=== PATIENT | male | born 1950 | race Caucasian/White ===

== ENCOUNTER 2018-02-21 06:48 | Day surgery (SDC) | payer MEDICARE ==
[2018-02-17 10:24] VITALS: BMI 34.0
[~2018-02-21 06:48] MED LIST: LACTATED RINGERS 1,000 ML IV SCH; LIDOCAINE 1% 20 ML VIAL (10MG/ML) FOR IV START INTRADERMA PRN
[2018-02-21] MEDS ORDERED: LACTATED RINGERS 1,000 ML IV ONE (07:07)
[2018-02-21 07:14] VITALS: TEMP 98.5
[2018-02-21 07:25] LABS: Glucose,Whole Blood 108 mg/dL (75-99)
[2018-02-21] MEDS ORDERED: PROPOFOL 10 MG/ML 20 ML VIAL IV ONE (07:50)
[2018-02-21 08:24] VITALS: RESP 18
--- NOTE | 2018-02-21 09:04 | P.PCN ---
Date of Procedure: 02/21/18 Procedure(s) Performed: Procedure: Total colonoscopy. Preoperative diagnosis: Screening for neoplasia. Postoperative diagnosis: Diverticulosis with no evidence of acute diverticulitis , strictures, polyps or cancer. Preparation: HalfLytely prep. Sedation: Was provided by anesthesia. Brief clinical history: The patient is a 67-year-old male who is scheduled for this evaluation for screening for neoplasia age being his risk factor. His prior exam was more than 10 years ago. The patient has no abdominal complaints , bleeding or anemia. Procedure: With the patient on his left lateral decubitus position and after informed consent and adequate sedation, the perianal area was inspected and it did not show any fissures or fistulas. There were no masses felt on digital rectal examination. The Olympus CFQ H190L video colonoscope was then inserted in the rectum in the usual fashion and advanced to the cecum. The mucosa appeared healthy. Multiple diverticular orifices were seen scattered along the length of the bowel with no evidence of acute diverticulitis or strictures. No polyps or tumors were seen. I retroflexed the endoscope in the rectum before the endoscope was withdrawn The patient tolerated the procedure well. Plan: The patient was reassured. Discussed dietary measures. Consideration can be given for repeat exam in 10 years depending on his overall health.
[2018-02-21 09:09] LABS: Glucose,Whole Blood 106 mg/dL (75-99)
[2018-02-21 09:10] VITALS: BP 148/83; PULSE 60
== END 2018-02-21 09:19 | disposition home or self-care (01) ==
LOC: ORWHC2ENDO 06:48
DX: Z12.11 Encounter for screening for malignant neoplasm of colon (principal); K57.30 Diverticulosis of large intestine without perforation or abscess without bleeding; I25.10 Atherosclerotic heart disease of native coronary artery without angina pectoris; E11.9 Type 2 diabetes mellitus without complications; I10 Essential (primary) hypertension; E78.5 Hyperlipidemia, unspecified; Z79.84 Long term (current) use of oral hypoglycemic drugs; Z79.82 Long term (current) use of aspirin; Z79.899 Other long term (current) drug therapy; Z95.1 Presence of aortocoronary bypass graft
CPT/HCPCS: J2704; G0121

== ENCOUNTER → 2019-11-16 | Outpatient (CLI) | payer MEDICARE ==
--- NOTE | 2019-11-16 22:28 | CONS ---
CONSULTATION DATE OF SERVICE: 11/16/2019 This patient is a 69-year-old gentleman who has been evaluated in Sleep Center for possible obstructive sleep apnea-hypopnea syndrome. HISTORY OF PRESENT ILLNESS/SLEEP-WAKE EVALUATION: Patient's usual sleep schedule is from 11 p.m. to 6 or 6:30 a.m. on weekdays and from midnight until 7 or 7:30 a.m. on weekends. Sometimes he has problems with falling asleep, although no TV in bedroom. He sleeps on his side, with severe snoring and witnessed episodes by his of stopped breathing during sleep. He wakes up from sleep 3 times with nocturia. In the morning the patient wakes up tired, has problems with memory and concentration. [place] Sleepiness Scale is 9. PAST MEDICAL HISTORY: Positive for coronary artery disease, hypertension, diabetes mellitus. PAST SURGICAL HISTORY: CABG. MEDICATIONS: Metformin, lisinopril, metoprolol, simvastatin, paroxetine, Januvia, glimepiride. SOCIAL HISTORY: Negative for smoking. Alcohol consumption occasional. FAMILY HISTORY: Heart problems, hyperlipidemia, hypertension. REVIEW OF SYSTEMS: Awakenings from sleep, episodes of sleepiness during the day. Patient takes one nap at 6 p.m. PHYSICAL EXAMINATION: GENERAL: A pleasant gentleman without distress. VITAL SIGNS: BP 140/77, HR 62, RR 16, height 5 feet 8 inches, weight 242 pounds, BMI 36.7, temperature 97.7, oxygen saturation at room air 96%. HEENT: PERRLA, EOMI. Evaluation of oropharynx showed tongue protrudes midline. Extremely low position of soft palate. Mallampati IV. NECK: Supple. No JVD. Thyroid is not palpable. Wide neck; 19 inches in circumference. LUNGS: Clear to percussion and to auscultation. Good air exchange. No wheezing or rhonchi. HEART: S1, S2 regular. No murmurs, gallops or rubs. ABDOMEN: Obese. EXTREMITIES: No clubbing or cyanosis. POLICE AND FIRE DISPATCHER: Awake, alert, and oriented X3. Cranial nerves 2 to 7 intact. There is no fasciculation or atrophy. noted. No focal deficits observed. IMPRESSION: 1. Loud snoring, witnessed episodes of stopped breathing during sleep, low position of soft palate, wide neck, sleepiness; obstructive sleep apnea-hypopnea syndrome. 2. Obesity with body mass index of 36.7. 3. Hypertension. 4. Coronary artery disease, status post myocardial infarction, coronary artery bypass grafting and stent insertions. 5. Diabetes mellitus. PLAN: 1. Patient will continue to use PAP equipment every night for the whole night. 2. Sleep hygiene with regular time in bed for at least 7-1/2 to 8 hours. 3. Precautions related to driving. No driving if feeling sleepiness. 4. I will maintain all necessary prescription for PAP supplies including mask, tube, filters. 5. Watching weight. 6. No driving if feeling sleepiness. 7. Follow-up visit in 6 months or earlier if patient has any problems. Thank you very much for referring this patient for consultation. Sincerely, Yvon Kim MD, PhD, FAASM Diplomat of [place] [employer] [employer] Furniture Removalist of [facility] [place] MMODL / KASHN: [id number] /
== END | disposition home or self-care (01) ==
LOC: SLEEP 16:56
PROVIDERS: ATTEND Internal Medicine
DX: G47.33 Obstructive sleep apnea (adult) (pediatric) (principal); E66.9 Obesity, unspecified; Z68.36 Body mass index [BMI] 36.0-36.9, adult; I10 Essential (primary) hypertension; I25.10 Atherosclerotic heart disease of native coronary artery without angina pectoris; E11.9 Type 2 diabetes mellitus without complications; Z86.79 Personal history of other diseases of the circulatory system; Z95.1 Presence of aortocoronary bypass graft; Z79.84 Long term (current) use of oral hypoglycemic drugs; Z79.899 Other long term (current) drug therapy
CPT/HCPCS: 99211

== ENCOUNTER → 2020-06-06 | Outpatient (CLI) | payer MEDICARE ==
--- NOTE | 2020-06-06 17:57 | SFUN ---
SLEEP CENTER FOLLOW UP NOTE DATE OF SERVICE: 06/06/2020 This 69-year-old gentleman has been followed in Sleep Center for treatment of obstructive sleep apnea-hypopnea syndrome. The patient had a home sleep apnea test and I discussed results of the sleep study with the patient in detail. Then he had a titration. I wrote him a prescription for a BiPAP machine, and today is his first visit after he was started on treatment with BiPAP. The patient sleeps better with BiPAP and feels better during the day. He is using BiPAP equipment most of the nights and does not have any significant complaints or any problems related to his BiPAP unit. [place] Sleepiness Scale today is 8. I checked his BiPAP unit. BiPAP pressure is 19/15. Usage for the last month is 19/30 days with average usage 5.2 hours per night. Leak is 72 L/minute, which is quite high. Apnea-hypopnea index is 7.6, which includes central abnormalities of respiration index 1.3. MEDICATIONS: Metformin, lisinopril, metoprolol, simvastatin, paroxetine, Januvia, glimepiride. PHYSICAL EXAMINATION: GENERAL: A pleasant patient in no distress. VITAL SIGNS: BP 120/76, HR 72, RR 15, weight 232.2, temperature 98.2, oxygen saturation at room air 94%. HEENT: PERRLA, EOMI. Evaluation of oropharynx showed tongue protrudes midline. Extremely low position of soft palate. Mallampati IV. NECK: Supple. No JVD. Thyroid is not palpable. LUNGS: Clear to percussion and to auscultation. Good air exchange. No wheezing or rhonchi. HEART: S1, S2 regular. No murmurs, gallops or rubs. ABDOMEN: Obese. EXTREMITIES: No clubbing or cyanosis. SUPPORT REPRESENTATIVE: Awake, alert, and oriented X3. Cranial nerves 2 to 7 intact. There is no fasciculation or atrophy. noted. No focal deficits observed. IMPRESSION: 1. Severe obstructive sleep apnea-hypopnea syndrome; apnea-hypopnea index 55.6 with severe oxygen desaturation to 52%, significantly improved on BiPAP. Present apnea- hypopnea index is 7.6. The patient demonstrated acceptable compliance with treatment, benefitting from treatment. 2. Obesity. 3. Hypertension. 4. Coronary artery disease, status post myocardial infarction, coronary artery bypass grafting and stent insertions. 5. Diabetes mellitus. PLAN: 1. I changed the regimen in his machine to automatic, with maximal inspiratory pressure 21 and minimal expiratory pressure 9 and pressure support of 4. 2. Patient will continue to use PAP equipment every night for the whole night. 3. Sleep hygiene with regular time in bed for at least 7-1/2 to 8 hours. 4. Precautions related to driving. No driving if feeling sleepiness. 5. I will maintain all necessary prescription for PAP supplies including mask, tube, filters. 6. Watching weight. 7. No driving if feeling sleepiness. 8. Follow-up visit in 4 months or earlier if patient has any problems. Thank you very much for allowing me to participate in the management of your patient. Sincerely, Yvon Kim MD, PhD, FAASM Diplomat of [place] [employer] Specialties [place] [employer] of Internal Medicine Preparation Department Supervisor of [facility] [place] MMODL / KASHN: [id number] /
== END | disposition home or self-care (01) ==
LOC: SLEEP 13:32
PROVIDERS: ATTEND Internal Medicine
DX: G47.33 Obstructive sleep apnea (adult) (pediatric) (principal); I10 Essential (primary) hypertension; I25.10 Atherosclerotic heart disease of native coronary artery without angina pectoris; Z95.1 Presence of aortocoronary bypass graft; E11.9 Type 2 diabetes mellitus without complications; E66.9 Obesity, unspecified; Z99.89 Dependence on other enabling machines and devices; Z79.84 Long term (current) use of oral hypoglycemic drugs; Z79.899 Other long term (current) drug therapy

== ENCOUNTER → 2020-10-03 | Outpatient (CLI) | payer MEDICARE ==
--- NOTE | 2020-10-04 06:51 | SFUN ---
SLEEP CENTER FOLLOW UP NOTE DATE OF SERVICE: 10/03/2020 70-year-old gentleman has been followed in Sleep Center for treatment of obstructive sleep apnea-hypopnea syndrome. During the previous visit, because apnea-hypopnea index was increased to 7.6, I changed regimen in the machine. It was also high leak at that time from the CPAP equipment. The patient continued to use his CPAP equipment every night for the whole night. Sleeps well. Feels feel well during the day. [place] Sleepiness Scale today, he is 5. I checked his BiPAP unit, maximal inspiratory pressure 25, minimal expiratory pressure 9, pressure support 4. Usage nights for more than 4 hours, average 6.7 hours per night. Leak is 12 L/minutes which is significant improvement comparing with the last visit minute when it was 72 L/minute, and the average pressure 16.5/12.5. Apnea- hypopnea index 3.6, which is two times less than during previous visit. MEDICATIONS: Januvia 100 mg once a day. Farxiga 10 mg once a day. Metformin 1000 mg twice a day. Lisinopril 10 mg once a day, simvastatin 40 mg once a day. Metoprolol 50 mg twice a day. Paroxetine 25 mg once a day. PHYSICAL EXAMINATION: GENERAL: Patient in no distress. BP 109/60, HR 54, RR 15, height 5 feet 8 inches, weight is 232, BMI 35.2, temperature 98.3, oxygen saturation at room air 97%. Oropharynx extremely low position of soft palate. Mallampati IV. NECK: Supple, no JVD. Thyroid is not palpable. LUNGS: Clear to percussion and to auscultation. Good air exchange. No wheezing or rhonchi. HEART: S1, S2 regular. No murmurs, gallops, or rubs. ABDOMEN: Obese. Soft and nontender. Bowel sounds are present. No organomegaly appreciated. EXTREMITIES: No clubbing or cyanosis. LABORER COOK HOUSE: Awake, alert, and oriented X3. Cranial nerves 2 to 7 intact. There is no fasciculation or atrophy. noted. No focal deficits observed. IMPRESSION: 1. Obstructive sleep apnea-hypopnea syndrome in severe range, AHI 55.6 with oxygen desaturation to 52% presently on full control with BiPAP. 2. Coronary artery disease, status post myocardial infarction, coronary artery bypass graft and stent insertions. 3. Hypertension. 4. Obesity. 5. Diabetes mellitus. PLAN: 1. Patient will continue to use PAP equipment every night for the whole night. 2. Sleep hygiene with regular time in bed for at least 7-1/2 to 8 hours. 3. Precautions related to driving. No driving if feeling sleepiness. 4. I will maintain all necessary prescription for PAP supplies including mask, tube, filters. 5. Watching weight. 6. Follow-up visit in 6 months or earlier if patient has any problems. Thank you very much for allowing me to participate in management of your patient. Sincerely, Yvon Kim MD, PhD, FAASM Diplomat of [place] [employer] Specialties [employer] Board of Internal Medicine Lead Advisor of [facility] [place] MMODL / KASHN: [id number] /
== END ==
LOC: SLEEP 15:53
PROVIDERS: ATTEND Internal Medicine
DX: G47.33 Obstructive sleep apnea (adult) (pediatric) (principal); I10 Essential (primary) hypertension; E66.9 Obesity, unspecified; E11.9 Type 2 diabetes mellitus without complications; I25.10 Atherosclerotic heart disease of native coronary artery without angina pectoris; I25.2 Old myocardial infarction; Z95.1 Presence of aortocoronary bypass graft; Z95.5 Presence of coronary angioplasty implant and graft; Z68.35 Body mass index [BMI] 35.0-35.9, adult; Z99.89 Dependence on other enabling machines and devices; Z79.84 Long term (current) use of oral hypoglycemic drugs; Z79.899 Other long term (current) drug therapy

== ENCOUNTER → 2021-03-26 | Outpatient (CLI) | payer MEDICARE ==
--- NOTE | 2021-03-26 19:04 | SFUN ---
SLEEP CENTER FOLLOW UP NOTE DATE OF SERVICE: 03/26/2021 70-year-old gentleman has been followed in Sleep Center for treatment of obstructive sleep apnea-hypopnea syndrome. The patient continued to use his CPAP equipment every night for the whole night getting his supplies in time. [place] Sleepiness Scale today is 2. I checked his BiPAP unit. The air filter needs to be replaced. The maximal inspiratory pressure 21, minimal expiratory pressure 9, pressure support 4, usage 27/30 nights for more than 4 hours, average 6.9 hours per night. Good compliance. Leak is 35 L/minute, borderline. It is time to change his mask. Apnea-hypopnea index is 2.9 which is normal. MEDICATIONS: Januvia 100 mg once a day, Farxiga 10 mg once a day, metformin 1000 mg twice a day, metoprolol 50 mg twice a day, simvastatin 40 mg once a day, lisinopril 10 mg once a day, paroxetine 25 mg once a day. PHYSICAL EXAMINATION: GENERAL: Patient in no distress. BP 129/75, HR 55, RR 15, height 5 feet 8 inches, weight 231.2, body mass index 35.1, temperature 95.9, oxygen saturation at room air 97%. Oropharynx: Extremely low position of soft palate, Mallampati 4. NECK: Supple, no JVD. Thyroid is not palpable. LUNGS: Clear to percussion and to auscultation. Good air exchange. No wheezing or rhonchi. HEART: S1, S2 regular. No murmurs, gallops, or rubs. ABDOMEN: Obese. Soft and nontender. Bowel sounds are present. No organomegaly appreciated. EXTREMITIES: No clubbing or cyanosis. HEALTH DATA ANALYST: Awake, alert, and oriented X3. Cranial nerves 2 to 7 intact. There is no fasciculation or atrophy. noted. No focal deficits observed. IMPRESSION: 1. Severe obstructive sleep apnea-hypopnea syndrome, AHI 55.6 with oxygen desaturation to 52%. The patient demonstrated great compliance with treatment, benefitting from treatment. Normal respiration presently. 2. Coronary artery disease, status post myocardial infarction, coronary artery bypass grafting and stent insertion. 3. Hypertension. 4. Obesity. 5. Diabetes mellitus. PLAN: 1. Patient will continue to use PAP equipment every night for the whole night. 2. Sleep hygiene with regular time in bed for at least 7-1/2 to 8 hours. 3. Precautions related to driving. No driving if feeling sleepiness. 4. I will maintain all necessary prescription for PAP supplies including mask, tube, filters. 5. Watching weight. 6. Follow-up visit in 6 months or earlier if patient has any problems. Thank you very much for allowing me to participate in management of your patient. Sincerely, Yvon Kim MD, PhD, FAASM Diplomat of [place] [employer] Specialties Sleep Medicine Board of [place] Board of Internal Medicine Build And Release Manager of [facility] [place] MMODL / KASHN: [id number] /
== END ==
LOC: SLEEP 14:18
PROVIDERS: ATTEND Internal Medicine
DX: G47.33 Obstructive sleep apnea (adult) (pediatric) (principal); G47.36 Sleep related hypoventilation in conditions classified elsewhere; I25.10 Atherosclerotic heart disease of native coronary artery without angina pectoris; I10 Essential (primary) hypertension; E11.9 Type 2 diabetes mellitus without complications; E66.9 Obesity, unspecified; Z95.1 Presence of aortocoronary bypass graft; Z95.5 Presence of coronary angioplasty implant and graft; Z99.89 Dependence on other enabling machines and devices; Z79.84 Long term (current) use of oral hypoglycemic drugs; Z79.899 Other long term (current) drug therapy; Z68.35 Body mass index [BMI] 35.0-35.9, adult

== ENCOUNTER → 2021-07-15 | Outpatient (CLI) | payer MEDICARE ==
[2021-07-15 14:27] LABS: African American GFR (CKD) 60.1 (60.0-200.0); BUN/Creat Ratio 19.34 Ratio (12.00-20.00); Blood Urea Nitrogen 26.5 mg/dL (9.0-27.0); Calcium 9.4 mg/dL (8.7-10.3); Carbon Dioxide 18.8 mmol/L (20.0-27.5); Non-African American GFR(CKD) 51.9 (60.0-200.0)
== END | disposition home or self-care (01) ==
LOC: LABWHC1 09:06
PROVIDERS: ATTEND Internal Medicine
DX: I10 Essential (primary) hypertension (principal)
CPT/HCPCS: 36415; 80048

== ENCOUNTER → 2021-08-01 | Outpatient (CLI) | payer MEDICARE ==
--- NOTE | 2021-08-01 10:45 | US ---
EXAMINATION TYPE: US abdomen complete DATE OF EXAM: 08/01/2021 COMPARISON: NONE CLINICAL HISTORY: R74.8. Elevated liver enzymes. EXAM MEASUREMENTS: Liver Length: 16.5 cm Gallbladder Wall: 0.17 cm CBD: 0.23 cm Spleen: 10.1 cm Right Kidney: 11.3 x 4.4 x 5.1 cm Left Kidney: 11.6 x 5.5 x 5.6 cm Limited due to gas and body habitus. Pancreas: Tail not well visualized. Liver: Increased echogenicity. Appears coarse in echotexture. Gallbladder: No shadowing mobile gallstones. Evidence for sonographic Kraus's sign: No CBD: Portions seen appear wnl. Spleen: Slightly limited, no abnormalities seen. Right Kidney: No hydronephrosis or masses seen Left Kidney: Anechoic area seen lower pole: 3.1 x 2.8 x 2.8 cm. Upper IVC: Appears wnl Abd Aorta: Proximal aorta appears ectatic measuring 2.6 cm in AP and 2.7 cm in transverse. Iliacs ar e obscured by gas. No aneurysmal change of visualized abdominal aorta. Visualized pancreas appears within normal limits. Visualized liver is heterogeneously hyperechoic. Evaluation for focal masses suboptimal due to the h eterogeneity. No surrounding ascites. No intraluminal mobile shadowing gallstones in the gallbladder. No right-sided hydronephrosis. Left side shows 3.1 simple thin walled cyst. IMPRESSION: Heterogeneous hyperechoic appearance of liver consistent with diffuse fatty infiltration and/or underlying hepatocellular disease. Former is favored. Consider imaging guided random biopsy or ultrasound elastography to further evaluate if desired.
== END | disposition home or self-care (01) ==
LOC: RADUSWWP 09:31
PROVIDERS: ATTEND Internal Medicine
DX: K76.0 Fatty (change of) liver, not elsewhere classified (principal)
CPT/HCPCS: 76700

== ENCOUNTER → 2021-10-22 | Outpatient (CLI) | payer MEDICARE ==
--- NOTE | 2021-10-22 13:55 | P.PN ---
Subjective DATE: 10/22/2021 FOLLOW UP VISIT. Patient with obstructive sleep apnea hypopnea syndrome return to sleep center for follow-up visit. Patient is using PAP equipment every night for the whole night, getting PAP supplies in time. The patient does not have significant problems with the mask, PAP unit and humidification. [place] sleepiness scale is 2. I checked BiPAP unit. PAP unit pressure maximal inspiratory pressure 21, minimal expiratory pressure 9, average pressure of 17.6 or 13.6 cm H2O. Usage is 90 % for more then 4 hours, average 6.9 hours per night. Leak is 5 l/m, which is in acceptable range. Apnea Hypopnea Index is 4.0, which is normal. MEDICATIONS:1. Farxiga 10 mg once a day 2. Glimepiride 1 mg once a day 3. Januvia 100 mg once a day 4. Metformin 1000 mg twice a day 5. Metoprolol 50 mg twice a day 6. Lisinopril 10 mg once a day 7. Simvastatin 40 mg once a day 8. Paroxetine 18 25 mg once a day During physical exam: GENERAL: A pleasant patient without any distress. VITAL SIGNS: BP 116/72, HR he for, RR valve , weight 232, height 5 foot 7 inches, body mass index 35.7, temperature 96.6, oxygen saturation at room air 96% . HEENT: PERRLA, EOMI.low position of soft palate, Mallapati for . NECK: Supple. No JVD. LUNGS: Clear to percussion and to auscultation. Good air exchange. No wheezing or rhonchi. HEART: S1, S2 regular. ABDOMEN: Soft and nontender. Slightly obese EXTREMITIES: No clubbing or cyanosis. DIRECTOR CLOUD TRANSFORMATION: Awake, alert, and oriented x3. No focal deficit. Impressions: 1. Obstructive sleep apnea-hypopnea syndrome severe apnea-hypopnea index during diagnostic sleep study 55.6. Patient demonstrated great compliance with treatment, benefiting from treatment. 2. Coronary artery disease status post OK, status post CABG, stent insertion. 3. Obesity. 4. Hypertension. 5. Diabetes mellitus. Plan: 1. Continue using PAP equipment every night for the whole night. 2. To change air filter at least 1-2 times per month. 3. PAP unit should stay lower then position of the head. 4. Advised patient to remove all remaining water from humidifier canister daily and make it dry after each usage. Refill canister with fresh distilled water before each usage. 5. Sleep hygiene with regular time in bed for at least 8 hours. 6. Precautions related to driving. No driving if feel any sleepiness. 7. I will maintain prescription for PAP supplies including mask, tube, filters. 8. Follow up visit in 6 months or earlier if patient has any problems. 9. Watching weight. Thank you very much for allowing me to participate in the management of your patient. Yvon Kim MD, PhD, FAASM. Diplomat of [place] Board of Sleep Medicine, Sleep Medicine Board by [place] [employer] of Internal Medicine Motor And Generator Assembler of [facility] [place]
== END ==
LOC: SLEEP 13:18
PROVIDERS: ATTEND Internal Medicine
DX: G47.33 Obstructive sleep apnea (adult) (pediatric) (principal); I25.10 Atherosclerotic heart disease of native coronary artery without angina pectoris; I25.2 Old myocardial infarction; Z95.1 Presence of aortocoronary bypass graft; E66.9 Obesity, unspecified; I10 Essential (primary) hypertension; E11.9 Type 2 diabetes mellitus without complications; Z68.35 Body mass index [BMI] 35.0-35.9, adult; Z99.89 Dependence on other enabling machines and devices; Z79.84 Long term (current) use of oral hypoglycemic drugs; Z79.899 Other long term (current) drug therapy
CPT/HCPCS: 99212

== ENCOUNTER → 2022-11-25 | Outpatient (CLI) | payer MEDICARE ==
--- NOTE | 2022-11-25 15:04 | P.PN ---
Subjective DATE: 11/25/2022 FOLLOW UP VISIT. Patient with obstructive sleep apnea hypopnea syndrome return to sleep center for follow-up visit. Information from previous visit have been reviewed. Patient is using BPAP equipment every night for the whole night, getting PAP supplies in time. The patient does not have significant problems with the mask, PAP unit and humidification. [place] sleepiness scale is 1, which is perfect. I checked information from BPAP unit. BPAP unit pressure maximal inspiratory pressure 21, minimal expiratory pressure 9, pressure-support 4 cm H2O. Usage is 90% and 83 % for more then 4 hours, average 6.5 hours per night. Leak is 5.8 l/m, which is in acceptable range. Apnea Hypopnea Index is 2.6, which is normal. MEDICATIONS:1. Lisinopril 10 mg once a day 2. Simvastatin 40 mg once a day 3. Metoprolol 50 mg twice a day 4. Metformin 1000 mg twice a day 5. Paroxetine 20 mg once a day 6. Trulicity 0.75 mg injection once a week 7. Farxiga 10 mg once a day During physical exam: GENERAL: A pleasant patient without any distress. VITAL SIGNS: BP 127/74, HR 63, RR 18 , weight 233.0, temperature 98.4, oxygen saturation at room air 97 % . HEENT: PERRLA, EOMI.low position of soft palate, Mallapati 4 . NECK: Supple. No JVD. LUNGS: Clear to percussion and to auscultation. Good air exchange. No wheezing or rhonchi. HEART: S1, S2 regular. ABDOMEN: Soft and nontender.[] EXTREMITIES: No clubbing or cyanosis. NEONATAL NURSE: Awake, alert, and oriented x3. No focal deficit. Impressions: 1. Obstructive sleep apnea-hypopnea syndrome. Patient demonstrated great compliance with treatment, benefiting from treatment. 2. Hypertension. 3. Coronary artery disease status post AL, CABG, stent insertion. 4. Diabetes mellitus. 5. Obesity, weight is on 1 pound less than during previous visit. Plan: 1. Continue using PAP equipment every night for the whole night. 2. To change air filter at least 1-2 times per month. 3. PAP unit should stay lower then position of the head. 4. Advised patient to remove all remaining water from humidifier canister daily and make it dry after each usage. Refill canister with fresh distilled water before each usage. 5. Sleep hygiene with regular time in bed for at least 8 hours. 6. Precautions related to driving. No driving if feel any sleepiness. 7. I will maintain prescription for PAP supplies including mask, tube, filters. 8. Follow up visit in 6 months or earlier if patient has any problems. 9. Watching and losing weight. Thank you very much for allowing me to participate in the management of your patient. Yvon Kim MD, PhD, FAASM. Diplomat of [place] [employer] of Sleep Medicine, Sleep Medicine Board by [place] [employer] of Internal Medicine Counter Pocket Trimmer of [facility] [place]
== END ==
LOC: 3 N SLEEP 13:03
PROVIDERS: ATTEND Internal Medicine
DX: G47.33 Obstructive sleep apnea (adult) (pediatric) (principal); E11.9 Type 2 diabetes mellitus without complications; E66.9 Obesity, unspecified; I10 Essential (primary) hypertension; I25.10 Atherosclerotic heart disease of native coronary artery without angina pectoris; I25.2 Old myocardial infarction; Z79.84 Long term (current) use of oral hypoglycemic drugs; Z79.85 Long-term (current) use of injectable non-insulin antidiabetic drugs; Z79.899 Other long term (current) drug therapy; Z95.1 Presence of aortocoronary bypass graft; Z99.89 Dependence on other enabling machines and devices
CPT/HCPCS: 99212

== ENCOUNTER → 2023-06-10 | Outpatient (CLI) | payer MEDICARE ==
--- NOTE | 2023-06-10 14:00 | P.PN ---
Subjective DATE: 06/10/2023 FOLLOW UP VISIT. Patient with obstructive sleep apnea hypopnea syndrome return to sleep center for follow-up visit. Information from previous visit have been reviewed. Patient is using PAP equipment every night for the whole night, getting PAP supplies in time. The patient does not have significant problems with the mask, PAP unit and humidification. [place] sleepiness scale is1. I checked information from PAP unit. PAP unit pressure maximal inspiratory pressure 21, minimal expiratory pressure 9, pressure-support 4, average pressure 16.2 over 12.2 cm H2O. Usage is 100 % for more then 4 hours, average 7.8 hours per night. Leak is 7 l/m, which is in acceptable range. Apnea Hypopnea Index is 2.5, which is normal. MEDICATIONS:1. Metformin 1000 mg twice a day 2. Metoprolol 50 mg twice a day 3. Simvastatin 40 mg once a day 4. Lisinopril 10 mg once a day 5. Paroxetine 25 mg once a day During physical exam: GENERAL: A pleasant patient without any distress. VITAL SIGNS: BP 108/60, HR 66, RR 12 , weight 232, temperature 98.5, oxygen saturation at room air 98 % . HEENT: PERRLA, EOMI.low position of soft palate, Mallapati 4 . NECK: Supple. No JVD. LUNGS: Clear to percussion and to auscultation. Good air exchange. No wheezing or rhonchi. HEART: S1, S2 regular. ABDOMEN: Soft and nontender.[] EXTREMITIES: No clubbing or cyanosis. DIRECTOR RETAIL BRAND DEVELOPMENT: Awake, alert, and oriented x3. No focal deficit. Impressions: 1. Obstructive sleep apnea-hypopnea syndrome. Patient demonstrated great compliance with treatment, benefiting from treatment. 2. Hypertension. 3. Coronary artery disease status post heart attack, CABG, stent insertion. 4. Obesity, BMI 35. 5. Diabetes mellitus. Plan: 1. Continue using PAP equipment every night for the whole night. 2. To change air filter at least 1-2 times per month. 3. PAP unit should stay lower then position of the head. 4. Advised patient to remove all remaining water from humidifier canister daily and make it dry after each usage. Refill canister with fresh distilled water before each usage. 5. Sleep hygiene with regular time in bed for at least 8 hours. 6. Precautions related to driving. No driving if feel any sleepiness. 7. I will maintain prescription for PAP supplies including mask, tube, filters. 8. Watching and losing weight. 9. Follow up visit in 6 months or earlier if patient has any problems. Thank you very much for allowing me to participate in the management of your patient. Yvon Kim MD, PhD, FAASM. Diplomat of [place] Board [employer] Sleep Medicine, Sleep Medicine Board by [place] [employer] Medicine Independent Trader of [facility] [place]
== END ==
LOC: 3 N SLEEP 13:21
PROVIDERS: ATTEND Internal Medicine
DX: G47.33 Obstructive sleep apnea (adult) (pediatric) (principal); E11.9 Type 2 diabetes mellitus without complications; I10 Essential (primary) hypertension; I25.10 Atherosclerotic heart disease of native coronary artery without angina pectoris; E66.9 Obesity, unspecified; I25.2 Old myocardial infarction; Z68.35 Body mass index [BMI] 35.0-35.9, adult; Z79.84 Long term (current) use of oral hypoglycemic drugs; Z79.899 Other long term (current) drug therapy; Z95.1 Presence of aortocoronary bypass graft; Z95.5 Presence of coronary angioplasty implant and graft; Z99.89 Dependence on other enabling machines and devices; Z79.82 Long term (current) use of aspirin
CPT/HCPCS: 99212

== ENCOUNTER → 2023-12-30 | Outpatient (CLI) | payer MEDICARE ==
[2023-12-30 15:46] VITALS: BP 122/80; PULSE 57; RESP 16; TEMP 98.4
--- NOTE | 2023-12-30 16:02 | P.PROGSL ---
Subjective DATE: 12/30/2023 FOLLOW UP VISIT. Patient with obstructive sleep apnea hypopnea syndrome return to sleep center for follow-up visit. Information from previous visit have been reviewed. Patient is using PAP equipment every night for the whole night, getting PAP supplies in time. The patient does not have significant problems with the mask, PAP unit and humidification. [place] sleepiness scale is 1, which is perfect. I checked information from PAP unit. PAP unit pressure maximal inspiratory pressure 21, minimal expiratory pressure 9, pressure support 4, average pressure 16/12 cm H2O. Usage is 100% for more then 4 hours, average 7.8 hours per night. Leak is 10 l/m, which is in acceptable range. Apnea Hypopnea Index is 2.0, which is normal. MEDICATIONS have been reviewed, please see below. During physical exam: GENERAL: A pleasant patient without any distress. VITAL SIGNS: Please see below, weight is 236.4 lbs. HEENT: PERRLA, EOMI.low position of soft palate, Mallapati 4 . NECK: Supple. No JVD. LUNGS: Clear to percussion and to auscultation. Good air exchange. No wheezing or rhonchi. HEART: S1, S2 regular. ABDOMEN: Soft and nontender. Slightly obese EXTREMITIES: No clubbing or cyanosis. SALON MANAGER: Awake, alert, and oriented x3. No focal deficit. Impressions: 1. Obstructive sleep apnea-hypopnea syndrome. Patient demonstrated great compliance with treatment, benefiting from treatment. 2. Obesity, BMI 35.3, patient increased his weight on 4 pounds comparing with previous visit. 3. Hypertension. 4. Coronary artery disease, status post heart attack, CABG, stent insertion. 5. Diabetes mellitus. Plan: 1. Continue using PAP equipment every night for the whole night. 2. Sleep hygiene with regular time in bed for at least 7.5-8 hours 3. PAP unit should stay lower then position of the head. 4. Advised patient to remove all remaining water from humidifier canister daily and make it dry after each usage. Refill canister with fresh distilled water before each usage. 5. Watching and losing weight. 6. Precautions related to driving. No driving if feel any sleepiness. 7. I will maintain prescription for PAP supplies including mask, tube, filters. 8. Follow up visit in 6 months or earlier if patient has any problems. Thank you very much for allowing me to participate in the management of your patient. Yvon Kim MD, PhD, FAASM. Diplomat of [employer], Sleep Medicine Board by [employer] [facility] [place] Objective - Vital Signs Vital Signs: Vital Signs Temp 98.4 F 12/30/23 15:45 Pulse 57 L 12/30/23 15:45 Resp 16 12/30/23 15:45 BP 122/80 12/30/23 15:45 Pulse Ox 98 12/30/23 15:45 FiO2 Intake & Output 12/29/23 12/30/23 12/30/23 18:59 06:59 18:59 Weight 107.048 kg Home Medications: Home Medications Medication Instructions Recorded Confirmed Type Metoprolol Tartrate [Lopressor] 50 mg PO BID 02/17/18 12/30/23 History PARoxetine HCL [Paxil] 25 mg PO DAILY 02/17/18 12/30/23 History Simvastatin 40 mg PO HS 02/17/18 12/30/23 History lisinopriL [Zestril] 10 mg PO HS 02/17/18 12/30/23 History metFORMIN HCL [Glucophage] 1,000 mg PO BID 02/17/18 12/30/23 History Dapagliflozin Propanediol [Farxiga] 10 mg PO 12/30/23 History Dulaglutide [Trulicity] 0.75 mg SQ 12/30/23 History
== END ==
LOC: 3 N SLEEP 15:23
PROVIDERS: ATTEND Internal Medicine
CPT/HCPCS: 99212

== ENCOUNTER → 2024-08-24 | Outpatient (CLI) | payer MEDICARE ==
[2024-08-24 11:19] VITALS: BP 99/62; PULSE 68; RESP 16; TEMP 98
--- NOTE | 2024-08-24 12:32 | P.PROGSL ---
Subjective DATE: 08/24/2024 FOLLOW UP VISIT. Patient with obstructive sleep apnea hypopnea syndrome return to sleep center for follow-up visit. Information from previous visit have been reviewed. Patient is using PAP equipment every night for the whole night, getting PAP supplies in time. The patient does not have significant problems with the mask, PAP unit and humidification. [place] sleepiness scale is 2, which is normal. I checked information from PAP unit. PAP unit pressure maximal inspiratory pressure 21, minimal expiratory pressure 9, pressure support 4, average pressure 15.7/11.7 cm H2O. Usage is 100% for more then 4 hours, average 7.7 hours per night. Leak is 12 l/m, which is in acceptable range. Apnea Hypopnea Index is 2.6, which is normal. MEDICATIONS have been reviewed, please see below. During physical exam: GENERAL: A pleasant patient without any distress. VITAL SIGNS: Please see below, weight is 225 lbs. HEENT: PERRLA, EOMI.low position of soft palate, Mallapati 4 . NECK: Supple. No JVD. LUNGS: Clear to percussion and to auscultation. Good air exchange. No wheezing or rhonchi. HEART: S1, S2 regular. ABDOMEN: Soft and nontender.[] EXTREMITIES: No clubbing or cyanosis. RESEARCH ANTHROPOLOGIST: Awake, alert, and oriented x3. No focal deficit. Impressions: 1. Obstructive sleep apnea-hypopnea syndrome. Patient demonstrated great compliance with treatment, benefiting from treatment. 2. Obesity, BMI 34 0, patient lost 11 pounds comparing with previous visit. 3. Hypertension. 4. Coronary artery disease, status post heart attack, CABG and stent insertion. 5. Diabetes mellitus, recent hemoglobin A1c according to patient 6.7. Plan: 1. Continue using PAP equipment every night for the whole night. 2. Sleep hygiene with regular time in bed for at least 7.5-8 hours 3. PAP unit should stay lower then position of the head. 4. Advised patient to remove all remaining water from humidifier canister daily and make it dry after each usage. Refill canister with fresh distilled water before each usage. 5. Watching and continue losing weight. 6. Precautions related to driving. No driving if feel any sleepiness. 7. I will maintain prescription for PAP supplies including mask, tube, filters. 8. Follow up visit in 8 months or earlier if patient has any problems. Thank you very much for allowing me to participate in the management of your patient. Yvon Kim MD, PhD, FAASM. Diplomat of [employer], Sleep Medicine Board by [employer] [facility] [place] Objective - Vital Signs Vital Signs: Vital Signs Temp 98 F 08/24/24 11:18 Pulse 68 08/24/24 11:18 Resp 16 08/24/24 11:18 BP 99/62 08/24/24 11:18 Pulse Ox 97 08/24/24 11:18 FiO2 Intake & Output 08/23/24 08/24/24 08/24/24 18:59 06:59 18:59 Weight 102.058 kg Home Medications: Home Medications Medication Instructions Recorded Confirmed Type Metoprolol Tartrate [Lopressor] 50 mg PO BID 02/17/18 08/24/24 History PARoxetine HCL [Paxil] 25 mg PO DAILY 02/17/18 08/24/24 History Simvastatin 40 mg PO HS 02/17/18 08/24/24 History lisinopriL [Zestril] 10 mg PO HS 02/17/18 08/24/24 History metFORMIN HCL [Glucophage] 1,000 mg PO BID 02/17/18 08/24/24 History Dapagliflozin Propanediol [Farxiga] 10 mg PO DAILY 12/30/23 08/24/24 History Dulaglutide [Trulicity] 0.75 mg SQ WEEKLY 12/30/23 08/24/24 History
== END ==
LOC: 3 N SLEEP 10:52
PROVIDERS: ATTEND Internal Medicine
DX: G47.33 Obstructive sleep apnea (adult) (pediatric) (principal); E66.9 Obesity, unspecified; I10 Essential (primary) hypertension; E11.9 Type 2 diabetes mellitus without complications; I25.10 Atherosclerotic heart disease of native coronary artery without angina pectoris; Z95.1 Presence of aortocoronary bypass graft; Z68.34 Body mass index [BMI] 34.0-34.9, adult; Z95.5 Presence of coronary angioplasty implant and graft
CPT/HCPCS: 99212